=== PATIENT | female | born 2000 | race Caucasian/White ===

== ENCOUNTER 2021-05-06 22:18 | Emergency (ER) | payer BC, SELFPAY ==
[2021-05-06 22:20] VITALS: BP 118/80; PULSE 72; RESP 12; TEMP 36.4; O2SAT 97; BMI 18.6
--- NOTE | 2021-05-06 22:35 | EDS_ITS ---
HPI History of Present Illness Chief Complaint: Headache Narrative Narrative: Patient with past medical history of depression for which she takes Prozac presents with headache that began 2 days ago and lower neck pain. She states she was also shaky when she was at work today. Her headache was on both sides of her head radiating down towards her neck. She states that she had photophobia and nausea and vomited once without any blood in her emesis. She was taking Tylenol and Aleve and her headache resolved but she still has lower neck pain. 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 She denies any loss of bowel or bladder or loss of consciousness but states she felt weak, tired, and tremulous. [facility] Medical History Depression Home Medications fluoxetine [Prozac] mg 05/06/21 [History Last Taken Unknown] iron 05/06/21 [History Last Taken Unknown] Allergy/AdvReac Type Severity Reaction Status Date / Time No Known Allergies Allergy Verified 05/06/21 22:20 Social History Smoking Status: Never smoker ROS ROS ED ROS Narrative Constitutional: No fever, no chills. HEENT: No sore throat. No neck pain. No loss of vision. No rhinorrhea. Lower neck pain. Worse with movement. Cardiovascular: No chest pain. No palpitations. No pedal edema. Respiratory: No cough, no shortness of breath. Abdominal: No abdominal pain. Positive nausea-resolved. 1 episode of nonbloody vomiting. Genitourinary: No dysuria. No hematuria. Musculoskeletal: No myalgias. No arthralgias. Neurologic: Positive headaches-resolved. No dizziness. No lightheadedness. Shakiness and tremulousness. Skin: No rash. No change in color. Psychiatric: No depression. No anxiety. EXAM Physical Exam Narrative Exam Narrative: Afebrile. Vital signs noted. HEENT: Normocephalic. Atraumatic. PERRL, EOMI. Neck soft and supple. No point tenderness or step off. Mild tenderness palpation bilateral paraspinal musculature down to the level of C7. No meningismus. Cardiovascular: Regular rate and rhythm. No murmurs, rubs, or gallops appreciated. Respiratory: No tachypnea. Lungs clear to auscultation bilaterally. Gastrointestinal: Abdomen soft, nontender, with normoactive bowel sounds. No rebound or guarding. Neurological: Awake. Alert. Oriented x3. Nonfocal, nonlateralizing. Skin: No rash. Normal color. No pallor. Musculoskeletal: No pedal edema. Full range of motion extremities. Const Vital Signs: 05/06/21 22:20 Temperature 97.5 F L Temperature Source Temporal Pulse Rate 72 Respiratory Rate 12 Blood Pressure 118/80 Blood Pressure Mean 92 Pulse Ox 97 Oxygen Delivery Method Room Air MDM MDM MDM Narrative Medical decision making narrative: Her headache has resolved. I do feel that her shakiness and tremulousness may be secondary to stress, as well as her stress headache that has resolved. For analgesia of her neck pain, she was administered Toradol 15 mg intravenously along with a normal saline bolus. We will check her baseline laboratories such as CBC without differential and basic metabolic panel to make sure she does not have an electrolyte imbalance causing her shakiness. I do not feel that a test is indicated because she states that she is not sexually active and is currently on her menses. CBC is normal. Electrolyte panel is also grossly unremarkable. Upon repeat examination, she is resting comfortably. Her father is at the bedside. He states that she had COVID, mono, and other sicknesses at the same time. Even 2 months later she is still testing positive for mono. I feel that she could be discharged safely home with follow-up. She will take [id number] analgesics as needed. I do feel that there may be some stress and tension related to her headache that has already resolved. Regarding her neck strain she will take [id number] medications as needed. Disposition is discharged home in stable condition. Lab Data Attestation: I reviewed the patient's lab results. Labs: Laboratory Results - last 24 hr 05/06/21 05/06/21 22:42 22:42 WBC 8.1 RBC 4.42 Hgb 13.5 Hct 38.8 MCV 87.8 MCH 30.5 MCHC 34.8 RDW Std Deviation 38.6 RDW Coeff of Shabbir 11.9 Plt Count 292 MPV 9.1 Sodium 136 Potassium 3.5 Chloride 107 Carbon Dioxide 24.0 Anion Gap 5 BUN 12 Creatinine 0.85 Estim Creat Clear Calc 81.83 Est GFR (MDRD) Af Amer 109 Est GFR (MDRD) Non-Af 90 BUN/Creatinine Ratio 14.2 Glucose 102 Calcium 9.3 Discharge Plan Triage Chief Complaint: Headache Other Complaint: Head Injury ED Provider: Zachery Villagomez Dx/Rx/DC Orders Clinical Impression: Tension headache, Neck pain Instructions: ED Headache Unspecified, ED Headache, Tension, ED Neck Pain Prescriptions: No Action fluoxetine [Prozac] 40 mg Capsule RF: 0 iron RF: 0 Referrals: MICHELLE REDD [Other] - 3-5 Days if not improving Disposition Disposition: Home, Self Care
[2021-05-06] MEDS: Ketorolac 15 MG/ML Vial IV (22:43)
[2021-05-06] MEDS: 0.9% Normal Saline 1,000 ML 1000 ML IV (22:43)
[2021-05-06 23:01] LABS: Hematocrit 38.8 % (37-47); Hemoglobin 13.5 g/dL (12.0-15.0); Mean Corp Hgb Conc 34.8 g/dL (32-36); Mean Corpuscular Hgb 30.5 pg (27.0-32.0); Mean Corpuscular Volume 87.8 fL (81-99); Mean Platelet Vol. 9.1 fl (6.2-12.0); Platelet Count 292 K/mm3 (150-450); RBC Distribution Width CV 11.9 % (11.6-14.6); RBC Distribution Width SD 38.6 fl (35.1-43.9); Red Blood Count 4.42 M/mm3 (4.2-5.4); White Blood Count 8.1 K/mm3 (4.4-11.0)
[2021-05-06 23:24] LABS: Anion Gap 5 (5-15); BUN 12 mg/dL (7-18); BUN/Creat Ratio 14.2 RATIO (10-20); Calcium,Total 9.3 mg/dL (8.5-10.1); Chloride 107 mmol/L (98-107); Creatinine, Serum 0.85 mg/dL (0.55-1.02); EST Glomerular Filtration Rate 90 mL/min (>60); Est Glom Filt Rate - Afr Amer 109 mL/min (>60); Estimated Creatinine Clearance 81.83 ml/min; Glucose 102 mg/dL (74-106); Potassium 3.5 mmol/L (3.5-5.1); Sodium Level 136 mmol/L (136-145)
== END 2021-05-06 23:44 | disposition home or self-care (01) ==
PROVIDERS: Emergency Provider Emergency Medicine; Visit Provider Emergency Medicine
DX: G44.209 Tension-type headache, unspecified, not intractable (principal); F32.A Depression, unspecified; Z79.899 Other long term (current) drug therapy
CPT/HCPCS: 80048; 85027; 96361; 96374; 99283; J7030; A4216